=== PATIENT | male | born 1970 | race Caucasian/White ===

== ENCOUNTER 2020-11-12 02:05 | Emergency (ER) | payer OTHER ==
[~2020-11-12] VITALS: Ht 175.3 cm; Wt 72.7 kg
[2020-11-12 02:13] VITALS: Ht 175.3 cm; Wt 72.7 kg
[2020-11-12] MEDS ORDERED: LISINOPRIL10 MG PO (02:14)
[2020-11-12] MEDS ORDERED: OMEPRAZOLE20 M1 PO (02:15)
[2020-11-12] MEDS ORDERED: KLONOPIN1 MG PO (02:15)
[2020-11-12] MEDS ORDERED: ZOCOR10 MG PO (02:15)
[2020-11-12] MEDS ORDERED: PHENERGAN6.25 MG/5 PO (02:16)
[2020-11-12 04:17] LABS: BASOPHILS 0.4 % (0-2); EOSINOPHILS 3.1 % (0-7); HEMATOCRIT 38.3 % (42.0-54.0); HEMOGLOBIN 13.6 g/dL (13.5-17.5); IMMATURE GRANULOCYTES 0.1 % (0-5); LYMPHOCYTE ABS# 1.07 10x3/uL (1.32-3.57); LYMPHOCYTES 12.8 % (15-50); MCH 31.7 pg (26.0-34.0); MCHC 35.5 g/dL (31.0-37.0); MCV 89.3 fL (80.0-100.0); MEAN PLATELET VOLUME 10.3 fL (7.4-10.4); NEUTROPHIL ABS# 6.42 10x3/uL (1.78-5.38); NEUTROPHILS 76.6 % (40-80); PLATELET COUNT 219 10x3/uL (130-400); RBC 4.29 10x6/uL (4.20-6.10); RDW 12.8 % (11.5-14.5); WBC 8.4 10x3/uL (4.8-10.8)
[2020-11-12 04:27] LABS: CALC OSMOLALITY 279 mosm/kg (275-300); CALCIUM 8.7 mg/dL (8.5-10.1); CARBON DIOXIDE 28.3 mmol/L (21.0-32.0); CHLORIDE - SERUM 103 mmol/L (98-107); CREATININE - SERUM 0.8 mg/dL (0.6-1.3); GLUCOSE 117 mg/dL (74-106); POTASSIUM - SERUM 4.1 mmol/L (3.5-5.1); SODIUM 139 mmol/L (136-145); UREA NITROGEN 15 mg/dL (7-18); eGFR NON AFRICAN AMERICAN > 90 mL/min (90-120)
[2020-11-12 04:29] LABS: INR 1.11 (0.85-1.17); PROTIME 13.2 SECONDS (11.6-15.0)
[2020-11-12 04:33] LABS: ALBUMIN 3.2 g/dL (3.4-5.0); ALKALINE PHOSPHATASE 87 U/L (30-120); ALT (SGPT) 20 U/L (10-68); BILIRUBIN - TOTAL 0.28 mg/dL (0.2-1.3); PROTEIN - SERUM 6.9 g/dL (6.4-8.2)
[2020-11-12 05:44] VITALS: BP 120/72
[2020-11-12] MEDS ORDERED: ULTRAM50 MG PO (06:12)
[2020-11-12] MEDS ORDERED: NAPROSYN500 MG PO (06:12)
== END 2020-11-12 06:32 | disposition home or self-care (01) ==
LOC: D.ER 02:05
PROVIDERS: Family Medicine
DX: M54.6 Pain in thoracic spine (principal); I10 Essential (primary) hypertension; J44.9 Chronic obstructive pulmonary disease, unspecified; K21.9 Gastro-esophageal reflux disease without esophagitis; Z72.0 Tobacco use